=== PATIENT | female | born 1955 | race Caucasian/White ===

== ENCOUNTER 2016-11-08 12:09 | Emergency (ER) | payer MEDICAID ==
[~2016-11-08] VITALS: Ht 165.1 cm; Wt 82.0 kg
[2016-11-08 12:17] VITALS: BP 119/64
[2016-11-08] MEDS ORDERED: NAPROXEN 375MG TABLET PO ONE (13:00)
== END 2016-11-08 14:15 | disposition home or self-care (01) ==
LOC: ER 14:01
DX: S63.501A Unspecified sprain of right wrist, initial encounter (principal); W01.0XXA Fall on same level from slipping, tripping and stumbling without subsequent striking against object, initial encounter; Y93.89 Activity, other specified; Y99.8 Other external cause status; Y92.89 Other specified places as the place of occurrence of the external cause
CPT/HCPCS: 29125; 73110; 73130; 99284

== ENCOUNTER 2016-11-16 07:58 | Emergency (ER) | payer MEDICAID ==
[~2016-11-16] VITALS: Ht 165.1 cm; Wt 81.0 kg
[2016-11-16] MEDS ORDERED: KETOROLAC 60MG/2ML VIAL IM ONE (09:30)
[2016-11-16 09:43] VITALS: BP 170/72
[2016-11-16 09:56] LABS: HCG SCREEN NEGATIVE
== END 2016-11-16 12:32 | disposition home or self-care (01) ==
LOC: ER 09:26
DX: M25.512 Pain in left shoulder (principal)
CPT/HCPCS: 73030; 73060; 73070; 84703; 96372; 99285; J1885; Z7610